=== PATIENT | female | born 1985 | race Caucasian/White ===

== ENCOUNTER 2016-10-02 08:31 | Emergency (ER) | payer OTHER ==
[~2016-10-02] VITALS: Ht 167.6 cm; Wt 84.4 kg
[2016-10-02 10:16] LABS: BASOPHIL % 0.7 % (0-2); RED CELL DISTRIBUTION WIDTH 14.2 % (11.5-14.5)
[2016-10-02 10:20] LABS: PLATELET COUNT 442 x10^3mcL (130-400)
[2016-10-02 10:21] LABS: CALCIUM 8.7 mg/dL (8.5-10.1); CARBON DIOXIDE 27.3 mmol/L (21-32); CHLORIDE SERUM 103 mmol/L (98-107); CREATININE SERUM 0.6 mg/dL (0.6-1.0); GFR1 > 60 mL/min; GLUCOSE SERUM 115 mg/dL (74-106); POTASSIUM SERUM 3.8 mmol/L (3.5-5.1); SODIUM SERUM 138 mmol/L (136-145)
[2016-10-02 10:23] LABS: ALKALINE PHOSPHATASE 76 U/L (46-116); ALT/SGPT 56 U/L (14-59); AMYLASE 45 U/L (25-115); AST/SGOT 29 U/L (15-37); BILIRUBIN TOTAL 0.1 mg/dL (0.20-1.00); LIPASE 160 IU/L (73-393); TOTAL PROTEIN, SERUM 7.1 g/dL (6.4-8.2)
[2016-10-02 10:29] LABS: ALBUMIN 2.7 g/dL (3.4-5.0)
[2016-10-02 12:35] VITALS: BP 125/86
== END 2016-10-02 12:36 | disposition home or self-care (01) ==
LOC: ED 08:31
PROVIDERS: Emergency Medicine
DX: G89.18 Other acute postprocedural pain (principal); R10.2 Pelvic and perineal pain; I10 Essential (primary) hypertension; E11.9 Type 2 diabetes mellitus without complications; Z98.890 Other specified postprocedural states; Z79.4 Long term (current) use of insulin
CPT/HCPCS: 36415; 83880; J1885

== ENCOUNTER 2018-10-30 09:58 | Emergency (ER) | payer OTHER ==
[~2018-10-30] VITALS: Ht 167.6 cm; Wt 79.8 kg
[2018-10-30 10:02] VITALS: Ht 167.6 cm; Wt 79.8 kg
[2018-10-30 10:59] VITALS: BP 145/75
== END 2018-10-30 10:59 | disposition home or self-care (01) ==
LOC: ED 09:58
DX: S05.11XA Contusion of eyeball and orbital tissues, right eye, initial encounter (principal); I10 Essential (primary) hypertension; E11.9 Type 2 diabetes mellitus without complications; Z98.890 Other specified postprocedural states; W22.8XXA Striking against or struck by other objects, initial encounter; Y93.89 Activity, other specified; Y92.89 Other specified places as the place of occurrence of the external cause; Y99.8 Other external cause status

== ENCOUNTER 2018-11-16 11:34 | Emergency (ER) | payer OTHER ==
[~2018-11-16] VITALS: Ht 167.6 cm; Wt 81.6 kg
[2018-11-16 11:44] VITALS: BP 187/102; Ht 167.6 cm; Wt 81.6 kg
== END 2018-11-16 14:14 | disposition home or self-care (01) ==
LOC: ED 11:34
DX: L03.115 Cellulitis of right lower limb (principal); I10 Essential (primary) hypertension; E11.9 Type 2 diabetes mellitus without complications
CPT/HCPCS: 82962; Q0092

== ENCOUNTER 2019-04-07 18:36 | Emergency (ER) | payer OTHER ==
[~2019-04-07] VITALS: Ht 167.6 cm; Wt 83.5 kg
[2019-04-07 18:59] VITALS: Ht 167.6 cm; Wt 83.5 kg
[2019-04-07 19:34] LABS: microscopic required? YES; urine erythrocyte 3+ (NEGATIVE)
[2019-04-07 21:33] LABS: BASOPHIL % 0.7 % (0-2); PLATELET COUNT 319 x10^3mcL (130-400)
[2019-04-07 21:36] LABS: RED CELL DISTRIBUTION WIDTH 14.7 % (11.5-14.5)
[2019-04-07 21:58] LABS: CALCIUM 8.1 mg/dL (8.5-10.1); CARBON DIOXIDE 23.8 mmol/L (21-32); CREATININE SERUM 2.4 mg/dL (0.6-1.0); POTASSIUM SERUM 4.2 mmol/L (3.5-5.1)
[2019-04-07 22:03] LABS: BILIRUBIN TOTAL 0.14 mg/dL (0.20-1.00); TOTAL PROTEIN, SERUM 7.1 g/dL (6.4-8.2)
[2019-04-07 22:04] LABS: ALBUMIN 2.3 g/dL (3.4-5.0)
[2019-04-08 02:03] VITALS: BP 163/95
== END 2019-04-08 02:03 | disposition home or self-care (01) ==
LOC: ED 18:36
PROVIDERS: Emergency Medicine
DX: K85.90 Acute pancreatitis without necrosis or infection, unspecified (principal); N28.9 Disorder of kidney and ureter, unspecified; E11.9 Type 2 diabetes mellitus without complications; I10 Essential (primary) hypertension
CPT/HCPCS: 36415; 82962; J7030; Q0092

== ENCOUNTER 2019-10-09 14:42 | Inpatient (IN) | payer OTHER, SELFPAY ==
[~2019-10-09] VITALS: Ht 167.6 cm; Wt 79.1 kg
[2019-10-09 15:15] VITALS: Ht 167.6 cm; Wt 79.1 kg
[2019-10-09 16:04] LABS: microscopic required? YES; urine erythrocyte 3+ (NEGATIVE)
[2019-10-09 16:07] LABS: BASOPHIL % 0.4 % (0-2); PLATELET COUNT 406 x10^3mcL (130-400); RED CELL DISTRIBUTION WIDTH 14.4 % (11.5-14.5)
[2019-10-09 16:26] LABS: BILIRUBIN TOTAL 0.34 mg/dL (0.20-1.00); CALCIUM 8.1 mg/dL (8.5-10.1); POTASSIUM SERUM 3.9 mmol/L (3.5-5.1); TOTAL PROTEIN, SERUM 7.2 g/dL (6.4-8.2)
[2019-10-09 16:29] LABS: CREATININE SERUM 4.3 mg/dL (0.6-1.0)
[2019-10-09] MEDS ORDERED: ZOF4 PO (16:46)
[2019-10-09] MEDS ORDERED: BASAGLAR K100 UNIT/1 SQ (16:46)
[2019-10-09] MEDS ORDERED: MICROZIDE12.5 MG PO (16:47)
[2019-10-09] MEDS ORDERED: ZESTRIL2.5 MG PO (16:47)
[2019-10-09 17:24] LABS: C REACTIVE PROTEIN 14.4 mg/dL (<=0.9)
[2019-10-09 20:08] VITALS: BP 183/102
[2019-10-09 22:00] VITALS: BP 171/101
[2019-10-10 06:27] VITALS: BP 193/113
[2019-10-10 08:30] LABS: BASOPHIL % 0.1 % (0-2); PLATELET COUNT 381 x10^3mcL (130-400)
[2019-10-10 08:36] LABS: RED CELL DISTRIBUTION WIDTH 14.6 % (11.5-14.5)
[2019-10-10 08:53] LABS: BILIRUBIN TOTAL 0.25 mg/dL (0.20-1.00); CARBON DIOXIDE 20.6 mmol/L (21-32); CREATININE SERUM 3.9 mg/dL (0.6-1.0); POTASSIUM SERUM 4.2 mmol/L (3.5-5.1); TOTAL PROTEIN, SERUM 6.4 g/dL (6.4-8.2)
[2019-10-10 08:54] LABS: ALBUMIN 1.6 g/dL (3.4-5.0)
[2019-10-10 09:00] VITALS: BP 189/105
[2019-10-10 12:37] VITALS: BP 153/87
[2019-10-10 17:11] VITALS: BP 158/88
[2019-10-10 21:45] VITALS: BP 169/96
[2019-10-11 01:00] VITALS: BP 147/79
[2019-10-11 02:50] LABS: BASOPHIL % 0.4 % (0-2)
[2019-10-11 02:51] LABS: PLATELET COUNT 449 x10^3mcL (130-400)
[2019-10-11 03:06] LABS: CALCIUM 7.8 mg/dL (8.5-10.1); CARBON DIOXIDE 19.1 mmol/L (21-32); CREATININE SERUM 3.9 mg/dL (0.6-1.0); POTASSIUM SERUM 3.9 mmol/L (3.5-5.1)
[2019-10-11 05:48] VITALS: BP 132/70
[2019-10-11 09:00] VITALS: BP 147/79
[2019-10-11 10:32] VITALS: BP 147/79
== END 2019-10-11 11:44 | disposition home or self-care (01) | DRG 137 ==
LOC: ED 14:42 → DU 18:28 → MU 18:28 → DU 10-10 11:18
PROVIDERS: Emergency Medicine; Internal Medicine; ADMIT Internal Medicine Pulmonary Disease; ATTEND Internal Medicine Pulmonary Disease
DX: U07.1 COVID-19 (principal); E11.22 Type 2 diabetes mellitus with diabetic chronic kidney disease; N17.9 Acute kidney failure, unspecified; N18.4 Chronic kidney disease, stage 4 (severe); J12.89 Other viral pneumonia; E11.319 Type 2 diabetes mellitus with unspecified diabetic retinopathy without macular edema; I12.9 Hypertensive chronic kidney disease with stage 1 through stage 4 chronic kidney disease, or unspecified chronic kidney disease; N39.0 Urinary tract infection, site not specified; Z79.899 Other long term (current) drug therapy
CPT/HCPCS: 82962; 83880; 87804; G0378; J0360; J0456; J0696; J1100; J1644; J2270; J2405; J7030; J7512; Q0092; U0003-CS

== ENCOUNTER 2019-11-22 15:06 | Emergency (ER) | payer OTHER ==
[~2019-11-22] VITALS: Ht 162.6 cm; Wt 81.2 kg
[~2019-11-22 15:06] MED LIST: BASAGLAR K100 UNIT/1 SQ; MICROZIDE12.5 MG PO; ZESTRIL2.5 MG PO; ZOF4 PO
[2019-11-22 15:28] VITALS: Ht 162.6 cm; Wt 81.2 kg
[2019-11-22 16:13] VITALS: BP 130/75
== END 2019-11-22 17:00 | disposition home or self-care (01) ==
LOC: ED 15:06
DX: R10.13 Epigastric pain (principal); R11.2 Nausea with vomiting, unspecified; I10 Essential (primary) hypertension; E11.9 Type 2 diabetes mellitus without complications; W54.0XXA Bitten by dog, initial encounter; Y93.89 Activity, other specified; Y92.89 Other specified places as the place of occurrence of the external cause; Y99.8 Other external cause status